=== PATIENT | female | born 1985 | race Caucasian/White ===

== ENCOUNTER 2016-08-15 09:11 | Emergency (ER) | payer SELFPAY ==
[2016-08-15 09:23] VITALS: TEMP 98.6; BMI 39.5
[2016-08-15] MEDS ORDERED: SODIUM CHLORIDE 0.9% 10 ML FLUSH FLUSH PRN (09:28)
[2016-08-15] MEDS ORDERED: PROMETHAZINE 25 MG/ML VIAL IV ONE (09:33)
--- NOTE | 2016-08-15 09:35 | EDPRACDOC ---
- General Information Chief Complaint: Abdominal Pain Stated Complaint: ABD PAIN/SWELLING Time Seen by Provider: 08/15/16 09:27 Information Source: Patient Mode Of Arrival: Car Home Medications: Home Medications Ascorbic Acid [Vitamin C] 500 mg PO TID 08/15/16 Buspirone HCl [Buspar] 5 mg PO TID 08/15/16 Clonazepam 0.5 mg PO DAILY PRN 08/15/16 Dicyclomine HCl [Bentyl] 20 mg PO Q8H PRN #20 tab 08/15/16 Metoclopramide HCl [Reglan] 10 mg PO Q6H PRN #20 tablet 08/15/16 Norgestimate-Ethinyl Estradiol [Ortho Tri-Cyclen Lo Tablet] 1 each PO DAILY Vits W-Ca,Fe,FA(<1Mg) [] 1 each PO DAILY 08/15/16 Allergies/Adverse Reactions: Allergies Allergy/AdvReac Type Severity Reaction Status Date / Time Iodinated Contrast Media - Allergy Severe Hives* Verified 08/15/16 10:53 IV Dye ondansetron Allergy Severe Irregular Verified 08/15/16 10:53 Heartbeat - History of Present Illness Onset: 2 days HPI: Pt c/o diffuse abd pain, nausea, vaginal discharge, urgency, fever x 2-3 days. Pt states cough and congestion for week. Denies cp, sob, changes in bowel, rash. Pain Location: Reports: Diffuse Pain Context: Reports: Spontaneous Pain Severity: Mild Pain Quality: Reports: Aching Pain Radiation: Reports: No Radiation Last Menstrual Period: 07/24/16 : No Modifying Factors: improves with: Nothing Female Associated Signs & Symptoms: Reports: Nausea, Urgency, Chills, Vaginal Discharge Oral Intake: Decreased Urinary Output: Normal ED Past Medical History - History Reviewed Yes Nurses notes reviewed and agree except as marked - Patient Medical History Psychological History: Reports: Depression, Anxiety Systemic History: Reports: Hypothyroidism Surgical History: Reports: Tonsillectomy/Adnoidectomy - Social Medical History Smoking Status: Heavy tobacco smoker (5 or more cigarettes/day or daily pipe/ cigar) ETOH: None Substance Abuse: None EDM Review of Systems - Review of Systems Constitutional: Chills Ears: No Symptoms Reported. negative: Pain, Hearing Loss, Drainage, Ear Pulling Throat: No Symptoms Reported. negative: Pain, Swelling Nose: Congestion Mouth: No Symptoms Reported. negative: Pain, Drooling Respiratory: Cough Cardiovascular: No Symptoms Reported. negative: Chest Pain, Palpitations, Syncope, Edema, Orthopnea, PND, Skin Mottling, Cyanosis Gastrointestinal: Nausea, Pain Genitourinary: Urgency to urinate Neurological: No Symptoms Reported. negative: Headache, Dizziness, Seizure, Numbness, Weakness, Speech Difficulty, Gait Difficulty Musculoskeletal: No Symptoms Reported. negative: Neck, Chestwall, Ribs, Back, Shoulder, Arm, Elbow, Forearm, Wrist, Hand, Pelvis, Hip, Femur, Knee, Leg, Ankle , Foot Integumentary: No Symptoms Reported. negative: Itching, Rash, Bruising, Wound Allergic/Immunologic: No Symptoms Reported. negative: Hives, Itching Hematologic: No Symptoms Reported. negative: Lymphadenopathy, Easy Bruising, Easy Bleeding Psychiatric: No Symptoms Reported. negative: Anxiety, Depression, Hallucinations, Insomnia, Suicidal - Physical Exam Constitutional: Alert Oriented to: Time, Person, Place Last recorded Vital Signs: Last Vital Signs Temp 98.6 F 08/15/16 09:19 Pulse 67 08/15/16 10:50 Resp 18 08/15/16 10:50 BP 105/56 L 08/15/16 10:50 Pulse Ox 100 08/15/16 10:50 Oxygen Pulse Oxygen Saturation 100 O2 Device Room Air Oxygen Flow Rate Fraction of Inspired Oxygen ( FIO2) - HEENT Head: Normal ( normocephalic) Eye Exam: Normal (PERRL, EOMI, Sclera white) Oropharynx: Normal Tympanic Membrane: Normal ENT EAC: Normal Nose: No Symptoms Reported (septum midline) Neck: Normal (FROM, trachea at midline) - Respiratory/Cardiovascular Respiratory: Normal - CTA (BBS clear to auscultation without adventitious sounds ) Cardiovascular: Normal (RRR without murmur, gallop or rub) - GI Auscultation: Normal (NABS) Palpation: Normal (Soft,No rebound or guarding, non distended) Tenderness: Diffuse, Mild - Musculoskeletal Back: Normal (Non-Tender) Extremities: Normal (Normal tone, Pulses 2+ No cyanosis or edema, FROM) - Integumentary Skin: Normal, Warm, Dry Lymphatics: Normal (no adenopathy) - Neurologic Memory Impaired: Normal Motor Function: Normal (Normal tone, Pulses 2+ No cyanosis or edema, FROM) Mood Description: Normal Perception: Normal - Differential Diagnosis Gastroenteritis, Pancreatitis, Pneumonia, PUD, UTI, Other (vaginitis) - Results 08/15/16 10:20 08/15/16 10:20 WBC 7.6 xk/uL (3.8-10.8) 08/15/16 10:20 RBC 4.47 xM/uL (4.20-5.40) 08/15/16 10:20 Hgb 13.6 g/dL (12.0-16.0) 08/15/16 10:20 Hct 39.2 % (36-47) 08/15/16 10:20 MCV 88 fL (81-99) 08/15/16 10:20 MCH 30.4 pg (27-32) 08/15/16 10:20 MCHC 34.6 g/dl (33-36) 08/15/16 10:20 RDW 13.3 % (11.5-14.5) 08/15/16 10:20 Plt Count 197 xk/uL (130-400) 08/15/16 10:20 MPV 8.6 fL (7.4-10.4) 08/15/16 10:20 Neut % (Auto) 68.7 % (45-76) 08/15/16 10:20 Lymph % (Auto) 23.9 % (17-44) 08/15/16 10:20 Yancey % (Auto) 5.5 % (3-10) 08/15/16 10:20 Eos % (Auto) 1.4 % (0-5) 08/15/16 10:20 Baso % (Auto) 0.5 % (0-2) 08/15/16 10:20 Absolute Neuts (auto) 5.17 xk/uL (1.7-8.2) 08/15/16 10:20 Absolute Lymphs (auto) 1.75 xk/uL (0.65-4.75) 08/15/16 10:20 Sodium 140 mEq/L (137-146) 08/15/16 10:20 Potassium 3.9 mEq/L (3.5-5.1) 08/15/16 10:20 Chloride 106 mEq/L (98-107) 08/15/16 10:20 Carbon Dioxide 23 mMOL/L (22-33) 08/15/16 10:20 Anion Gap 15 mEq/L (8-16) 08/15/16 10:20 BUN 8 MG/DL (7-17) 08/15/16 10:20 Creatinine 0.60 MG/DL (0.52-1.04) 08/15/16 10:20 Estimated GFR (MDRD) > 60 mL/min (>=60) 08/15/16 10:20 Glucose 92 MG/DL (70-99) 08/15/16 10:20 Calculated Osmolality 267 MOs/Kg (270-290) L 08/15/16 10:20 Calcium 8.7 MG/DL (8.4-10.2) 08/15/16 10:20 Corrected Calcium 8.9 MG/DL (8.4-10.2) 08/15/16 10:20 Total Bilirubin 0.4 MG/DL (0.2-1.3) 08/15/16 10:20 AST 22 IU/L (14-36) 08/15/16 10:20 ALT 28 IU/L (9-52) 08/15/16 10:20 Alkaline Phosphatase 70 IU/L (38-126) 08/15/16 10:20 Total Protein 7.0 G/DL (6.3-8.2) 08/15/16 10:20 Albumin 3.8 G/DL (3.5-5.0) 08/15/16 10:20 Lipase 125 U/L (23-300) 08/15/16 10:20 Urine Color Yellow 08/15/16 09:44 Urine Clarity Clear 08/15/16 09:44 Urine pH 6.0 (5.0-8.0) 08/15/16 09:44 Ur Specific [place] 1.010 (1.003-1.035) 08/15/16 09:44 Urine Protein Neg (NEG/TRACE) 08/15/16 09:44 Urine Glucose (UA) Neg (NEGATIVE) 08/15/16 09:44 Urine Ketones Neg (NEGATIVE) 08/15/16 09:44 Urine Occult Blood Neg (NEG/TRACE) 08/15/16 09:44 Urine Nitrite Neg (NEGATIVE) 08/15/16 09:44 Urine Bilirubin Neg (NEGATIVE) 08/15/16 09:44 Urine Urobilinogen <2.0 MG/DL (0-1) 08/15/16 09:44 Ur Leukocyte Esterase Neg (NEGATIVE) 08/15/16 09:44 Urine RBC 0-2 (0-5) 08/15/16 09:44 Urine WBC 0-2 (0-5) 08/15/16 09:44 Ur Epithelial Cells 2+ 08/15/16 09:44 Urine Bacteria Few (NEG/FEW) 08/15/16 09:44 Urine Test Neg (NEGATIVE) 08/15/16 09:44 Microbiology 08/15/16 09:33 STEFANIE Preparation - Final Vaginal 08/15/16 09:33 Trichomonas [place] - Final Vaginal Lab Results 08/15/16 08/15/16 08/15/16 10:20 10:20 10:20 WBC 7.6 RBC 4.47 Hgb 13.6 Hct 39.2 MCV 88 MCH 30.4 MCHC 34.6 RDW 13.3 Plt Count 197 MPV 8.6 Neut % (Auto) 68.7 Lymph % (Auto) 23.9 Yancey % (Auto) 5.5 Eos % (Auto) 1.4 Baso % (Auto) 0.5 Absolute Neuts (auto) 5.17 Absolute Lymphs (auto) 1.75 Sodium 140 Potassium 3.9 Chloride 106 Carbon Dioxide 23 Anion Gap 15 BUN 8 Creatinine 0.60 Estimated GFR (MDRD) > 60 Glucose 92 Calculated Osmolality 267 L Calcium 8.7 Corrected Calcium 8.9 Total Bilirubin 0.4 AST 22 ALT 28 Alkaline Phosphatase 70 Total Protein 7.0 Albumin 3.8 Lipase 125 Urine Color Urine Clarity Urine pH Ur Specific [place] Urine Protein Urine Glucose (UA) Urine Ketones Urine Occult Blood Urine Nitrite Urine Bilirubin Urine Urobilinogen Ur Leukocyte Esterase Urine RBC Urine WBC Ur Epithelial Cells Urine Bacteria Urine Test 08/15/16 08/15/16 09:44 09:44 WBC RBC Hgb Hct MCV MCH MCHC RDW Plt Count MPV Neut % (Auto) Lymph % (Auto) Yancey % (Auto) Eos % (Auto) Baso % (Auto) Absolute Neuts (auto) Absolute Lymphs (auto) Sodium Potassium Chloride Carbon Dioxide Anion Gap BUN Creatinine Estimated GFR (MDRD) Glucose Calculated Osmolality Calcium Corrected Calcium Total Bilirubin AST ALT Alkaline Phosphatase Total Protein Albumin Lipase Urine Color Yellow Urine Clarity Clear Urine pH 6.0 Ur Specific [place] 1.010 Urine Protein Neg Urine Glucose (UA) Neg Urine Ketones Neg Urine Occult Blood Neg Urine Nitrite Neg Urine Bilirubin Neg Urine Urobilinogen <2.0 Ur Leukocyte Esterase Neg Urine RBC 0-2 Urine WBC 0-2 Ur Epithelial Cells 2+ Urine Bacteria Few Urine Test Neg - Diagnostic Imaging Abdomen Image interpreted by: Radiologist 08/15/16 11:38 IMPRESSION: Negative abdominal radiographs. No acute cardiopulmonary disease. Decision Time to Discharge: 11:38 - Departure Disposition: Home Condition: Good Final Diagnosis: Nausea Abdominal pain Qualifiers: Abdominal location: generalized Qualified Code(s): R10.84 - Generalized abdominal pain Instructions: Acute Abdominal Pain (ED), Non-pharmacological Pain Management Therapies for Adults (GEN), Abdominal Pain (ED) Education/Counseling Given To: Patient Education/Counseling Given Regarding: Diagnosis, Treatment, Follow Up Referrals: None,No Provider [Primary Care Provider] - One Week Sinan Fairbanks MD [Staff Physician] - One Week Prescriptions: Dicyclomine HCl [Bentyl] 20 mg PO Q8H PRN #20 tab PRN Reason: Pain Metoclopramide HCl [Reglan] 10 mg PO Q6H PRN #20 tablet PRN Reason: Nausea Additional Instructions: Return for worse or different symptoms.
[2016-08-15] MEDS ORDERED: NS 1,000 ML IV ONE (09:36)
[2016-08-15 09:56] LABS: LEUKOCYTES/URINE NEG (NEGATIVE); NITRITE/URINE NEG (NEGATIVE); RBC/URINE 0-2 (0-5); URINE OCCULT BLOOD NEG (NEG/TRACE); WBC/URINE 0-2 (0-5)
[2016-08-15 10:32] LABS: AUTOMATED BASOPHIL 0.5 % (0-2); AUTOMATED EOSINOPHIL 1.4 % (0-5); AUTOMATED LYMPH 23.9 % (17-44); AUTOMATED MONOCYTE 5.5 % (3-10); AUTOMATED NEUTROPHIL 68.7 % (45-76); MPV 8.6 fL (7.4-10.4)
[2016-08-15 10:49] LABS: BLOOD UREA NITROGEN 8 MG/DL (7-17); CALC CORRECTED 8.9 MG/DL (8.4-10.2); CALCIUM 8.7 MG/DL (8.4-10.2); CALCULATED OSMOLALITY 267 MOs/Kg (270-290); CHLORIDE 106 mEq/L (98-107); GLUCOSE 92 MG/DL (70-99); SODIUM LEVEL 140 mEq/L (137-146)
--- NOTE | 2016-08-15 11:28 | DIRPT ---
CLINICAL DATA: Generalized abdominal pain, fever and nausea for 3 days as well as cough and congestion for 1 week. EXAM: DG ABDOMEN ACUTE W/ 1V CHEST COMPARISON: None. FINDINGS: There is no evidence of dilated bowel loops or free intraperitoneal air. No radiopaque calculi or other significant radiographic abnormality is seen. Heart size and mediastinal contours are within normal limits. Both lungs are clear. Mild dextroscoliosis of the lumbar spine. IMPRESSION: Negative abdominal radiographs. No acute cardiopulmonary disease. Electronically Signed By: Cristhian Paez M.D. On: 08/15/2016 11:26
[2016-08-15 12:02] VITALS: BP 128/73; PULSE 64
[2016-08-18 16:38] LABS: CHLAMY BY NUCLEIC ACID AMP Negative (Negative)
[2016-08-19 07:11] LABS: GC BY NUCLEIC ACID AMP Negative (Negative)
== END 2016-08-15 12:06 | disposition home or self-care (01) ==
LOC: ED 09:11
DX: R10.84 Generalized abdominal pain (principal); R11.0 Nausea
CPT/HCPCS: 36415; 74022; 80053; 81001; 81025; 83690; 85025; 87210; 87220; 87491; 87591; 96374; 99284; J2550

== ENCOUNTER 2016-08-23 12:01 | Emergency (ER) | payer SELFPAY ==
[2016-08-23 12:01] VITALS: BMI 39.5
[2016-08-23 12:25] VITALS: BP 142/67; PULSE 86; TEMP 98.3
--- NOTE | 2016-08-23 12:52 | EDPRACDOC ---
- General Information Chief Complaint: Wound Stated Complaint: RT BREAST INFECTION Time Seen by Provider: 08/23/16 12:38 Information Source: Patient Home Medications: Home Medications Buspirone HCl [Buspar] 5 mg PO TID 08/15/16 Norgestimate-Ethinyl Estradiol [Ortho Tri-Cyclen Lo Tablet] 1 each PO DAILY Clindamycin [Cleocin] 300 mg PO TID #60 capsule 08/23/16 Hydrocodone Bit/Acetaminophen [Hydrocodon-Acetaminophen 5-325] 1 tab PO Q4H PRN #15 tab 08/23/16 Allergies/Adverse Reactions: Allergies Allergy/AdvReac Type Severity Reaction Status Date / Time Iodinated Contrast Media - Allergy Severe Hives* Verified 08/23/16 12:49 IV Dye ondansetron Allergy Severe Irregular Verified 08/23/16 12:49 Heartbeat - History of Present Illness Onset: 2 DAYS HPI: PT C/O 2 DAYS OF RIGHT BREAST REDNESS TENDERNESS AND FIRMNESS AROUND THE NIPPLE AND AREOLA. NO FEVERS OR CHILLS AT THIS TIME. Rash Location: Reports: Other (RT BREAST) Quality: Reports: Red Relevant History of: Reports: None Irritability: Mild Pain Severity: Mild ED Past Medical History - History Reviewed Yes Nurses notes reviewed and agree except as marked Travel Outside of [place] in the Last 3 Months?: No - Patient Medical History Psychological History: Reports: Anxiety. Denies: Depression Systemic History: Reports: Hypothyroidism Surgical History: Reports: Tonsillectomy/Adnoidectomy - Social Medical History Smoking Status: Heavy tobacco smoker (5 or more cigarettes/day or daily pipe/ cigar) ETOH: None Substance Abuse: None Lives With: Other Lives In: Home EDM Review of Systems - Review of Systems ROS Negative Except as Marked: Yes All systems reviewed and were negative except as marked Constitutional: No Symptoms Reported. negative: Fever, Chills, Weakness, Fatigue, Loss of Appetite Eyes: No Symptoms Reported. negative: Redness, Blurred Vision, Double Vision, Discharge, Pain, Light Sensitive, Photophobia Ears: No Symptoms Reported. negative: Pain, Hearing Loss, Drainage, Ear Pulling Throat: No Symptoms Reported. negative: Pain, Swelling Nose: No Symptoms Reported. negative: Congestion, Bleeding, Discharge, Injection, Swelling, Deformity, Ecchymosis, Tender, Abrasion, Laceration Mouth: No Symptoms Reported. negative: Pain, Drooling Respiratory: No Symptoms Reported. negative: Cough, Brassy Cough, Barky Cough, Shortness of Breath, Wheezing, Hemoptysis Cardiovascular: No Symptoms Reported. negative: Chest Pain, Palpitations, Syncope, Edema, Orthopnea, PND, Skin Mottling, Cyanosis Gastrointestinal: No Symptoms Reported. negative: Pain, Constipation, Nausea, Vomiting, Diarrhea, Melena, Formula Intolerance Genitourinary: No Symptoms Reported. negative: Dysuria, Hematuria, Frequency, Discharge, Bleeding, Testicular Pain, Neurological: No Symptoms Reported. negative: Headache, Dizziness, Seizure, Numbness, Weakness, Speech Difficulty, Gait Difficulty Musculoskeletal: No Symptoms Reported. negative: Neck, Chestwall, Ribs, Back, Shoulder, Arm, Elbow, Forearm, Wrist, Hand, Pelvis, Hip, Femur, Knee, Leg, Ankle , Foot Integumentary: Other (RT BREAST REDNESS TENDERNESS AND FIRMNESS AROUND AREOLA AND NIPPLE). negative: Bruising, Itching, Rash, Wound Allergic/Immunologic: No Symptoms Reported. negative: Hives, Itching Hematologic: No Symptoms Reported. negative: Lymphadenopathy, Easy Bruising, Easy Bleeding Endocrine: No Symptoms Reported. negative: Weight Gain, Weight Loss Psychiatric: No Symptoms Reported. negative: Anxiety, Depression, Hallucinations, Insomnia, Suicidal - Physical Exam Constitutional: No apparent distress, Alert (Awake) Oriented to: Time, Person, Place Last recorded Vital Signs: Last Vital Signs Temp 98.3 F 08/23/16 12:23 Pulse 86 08/23/16 12:23 Resp 20 08/23/16 12:23 BP 142/67 08/23/16 12:23 Pulse Ox 97 08/23/16 12:23 Oxygen Pulse Oxygen Saturation 97 O2 Device Room Air Oxygen Flow Rate Fraction of Inspired Oxygen ( FIO2) - HEENT Head: Normal ( normocephalic) Eye Exam: Normal (PERRL, EOMI, Sclera white) Oropharynx: Normal (Pharynx:Moist without exudate,Gums-no swelling) Tympanic Membrane: Normal ENT EAC: Normal TMJ: Normal Nose: No Symptoms Reported (septum midline) Neck: Normal (FROM, trachea at midline) - Respiratory/Cardiovascular Respiratory: Normal - CTA (BBS clear to auscultation without adventitious sounds ) Cardiovascular: Normal (RRR without murmur, gallop or rub) - GI Auscultation: Normal (NABS) Palpation: Normal (Soft,No rebound or guarding, non distended) Tenderness: Non tender Graf's Sign: Negative - Bladder: Normal - Musculoskeletal Back: Normal (Non-Tender) Extremities: Normal (Normal tone, Pulses 2+ No cyanosis or edema, FROM) - Integumentary Skin: Normal, Warm, Dry, Other (REDNESS WARMTH TENDERNESS AND FIRMNESS TO RIGHT BREAST AND AREOLA, CONSISTENT WITH MILD CELLULITIS/MASTITIS) Lymphatics: Normal (no adenopathy) - Neurologic Memory Impaired: Normal Motor Function: Normal (Normal tone, Pulses 2+ No cyanosis or edema, FROM) Cranial Nerve: Normal (CN II-X11 intact sensation, strength 5/5) Cerebellar: Normal Mood Description: Normal Perception: Normal - Differential Diagnosis Other (MASTITIS), Cellulitis Decision Time to Discharge: 12:53 - Departure Disposition: Home Condition: Stable Final Diagnosis: Cellulitis of right breast Instructions: Cellulitis (ED), Mastitis (ED) Education/Counseling Given To: Patient Education/Counseling Given Regarding: Diagnosis, Treatment, Prognosis, Follow Up Referrals: None,No Provider [Primary Care Provider] - One Week Jorge A Guerrero MD [Staff Physician] - One Week Prescriptions: Clindamycin [Cleocin] 300 mg PO TID #60 capsule Hydrocodone Bit/Acetaminophen [Hydrocodon-Acetaminophen 5-325] 1 tab PO Q4H PRN #15 tab PRN Reason: Pain Additional Instructions: RETURN FOR WORSE OR DIFFERENT SYMPTOMS.
[2016-08-23] MEDS ORDERED: CLINDAMYCIN 300 MG/2 ML VIAL IM ONE (14:00)
== END 2016-08-23 13:34 | disposition home or self-care (01) ==
LOC: EDMC 12:01
DX: N61.0 Mastitis without abscess (principal)
CPT/HCPCS: 96372; 99282; J3490